=== PATIENT | male | born 1960 | race Caucasian/White ===

== ENCOUNTER 2019-07-12 08:58 | Emergency (ER) | payer OTHER, SELFPAY ==
--- NOTE | ~2019-07-12 | XR_ITS ---
EXAMINATION: XR ankle RT min 3V DATE: 07/12/2019 09:41 INDICATION: Right ankle injury and pain. TECHNIQUE: 4 views of right ankle were obtained. COMPARISON: None. FINDINGS: Bone alignment is normal. No fracture. There is an osteochondral lesion of lateral talar do me. There are marginal osteophytes at the ankle joint. There is a 7 mm loose body in the posterior an kle joint recess. There are enthesophytes at the posterior and plantar aspects of calcaneal tuberosit y. Ankle soft tissue swelling is noted. IMPRESSION: 1. Ankle joint osteoarthritis including an osteochondral lesion at lateral talar dome. 2. Ankle joint loose body. Reviewed, dictated and finalized at location A. ONAL CLIMATE CHANGE ANALYST IMPRESSION: 1. Ankle joint osteoarthritis including an osteochondral lesion at lateral marie r dome. 2. Ankle joint loose body.
[2019-07-12 09:16] VITALS: BP 164/96; PULSE 92; RESP 16; TEMP 37.2; O2SAT 98
--- NOTE | 2019-07-12 09:27 | ED.LOWEXIN ---
HPI - Extremity Injury (Lower) General Chief Complaint: Extremity Injury, Lower Stated Complaint: Right ankle pain/swollen Time Seen by Provider: 07/12/19 09:28 Source: patient Mode of arrival: ambulatory Limitations: no limitations History of Present Illness HPI Narrative: Michael Wynn is a 58-year-old male with a PMH of high blood pressure who comes to express care after rolling his right ankle last night on grandchild's toy. Lateral ankle is swollen and difficult to walk on it without pain Related Data Home Medications Medication Instructions Recorded Confirmed lisinopril 30 mg PO DAILY 07/12/19 07/12/19 Allergies Allergy/AdvReac Type Severity Reaction Status Date / Time No Known Allergies Allergy Unverified 11/23/11 11:12 Review of Systems Review of Systems: Narrative: CONSTITUTIONAL: Denies fever, chills, sweats. EYES: Denies visual changes, redness, discharge. ENT: Denies rhinorrhea, congestion, sore throat, otalgia. CARDIOVASCULAR: Denies chest pain, palpitations, edema. RESPIRATORY: Denies dyspnea, wheezing, cough GASTROINTESTINAL: Denies abdominal pain, nausea, vomiting, diarrhea. GENITOURINARY: Denies dysuria, hematuria, abnormal discharge SKIN: Denies rash or itching. NEUROLOGIC: Denies numbness, or focal weakness. PSYCHIATRIC: Denies anxiety or depression. Right ankle pain and swelling PMFSH Family History Family History Other Cerebrovascular accident Family history of malignant neoplasm Social History Social History (Updated 07/12/19 @ 09:37 by Kala Chen CNP) Smoking status: Current every day smoker Alcohol intake: current Alcohol use details: When asked, states he drinks more than socially Comments At time of signature, I agree with nursing past medical, surgical, social and family history. There is no relevant family history pertinent to the presenting complaint. Exam Narrative: Exam Narrative: GENERAL: This is a well-nourished, well-developed patient, in no apparent distress. HEAD: normocephalic, atraumatic. EYES:Sclera clear/white. Vision is grossly intact. EARS: External ears normal, . Hearing grossly intact. NOSE: External nose normal with no obvious nasal discharge, nares without redness, no rhinorrhea. THROAT: Mucous membranes moist, NECK: Neck supple, non-tender without lymphadenopathy, masses or thyromegaly. CARDIOVASCULAR: Regular rate and rhythm without murmurs, gallops, or rubs. RESPIRATORY: Clear to auscultation. Breath sounds equal bilaterally. No wheezes, rales, or rhonchi. GASTROINTESTINAL: Abdomen soft, SKIN: warm, intact with no suspicious lesions or rash, good texture and turgor. NEURO: awake, alert, and oriented to person, place and time. There were no obvious focal neurologic abnormalities. Steady gait EXTREMITIES: Reduced range of motion in right ankle. edema. No calf tenderness. 2+ pedal pulse in right foot, wiggle toes BACK: Nontender without deformity or crepitance. Course Course Emergency Course: X-ray right ankle X-ray shows osteoarthritis, loose body in ankle joint, no acute fracture Placed in Robel wrap-referred to [place] pharmacy for boot to assist walking Vital Signs Vital signs: Vital Signs Temperature 99.0 F 07/12/19 09:16 Pulse Rate 92 07/12/19 09:16 Respiratory Rate 16 07/12/19 09:16 Blood Pressure 164/96 H 07/12/19 09:16 Pulse Oximetry 98 07/12/19 09:16 Temperature 99.0 F 07/12/19 09:16 Pulse Rate 92 07/12/19 09:16 Respiratory Rate 16 07/12/19 09:16 Blood Pressure 164/96 H 07/12/19 09:16 Pulse Oximetry 98 07/12/19 09:16 MDM - Extremity Injury (Lower) Differential Diagnosis Differential diagnosis: Likely ankle sprain and strain, fracture of toe and ankle fracture Discharge Plan Discharge Clinical Impression: Ankle sprain and strain Patient Disposition: Home, Self-Care Condition: Stable Instructions: Ankle Spr
== END 2019-07-12 10:19 | disposition home or self-care (01) ==
PROVIDERS: Emergency Provider Nurse Practitioner; PCP Emergency Medicine
DX: S93.401A Sprain of unspecified ligament of right ankle, initial encounter (principal); S96.911A Strain of unspecified muscle and tendon at ankle and foot level, right foot, initial encounter; X50.9XXA Other and unspecified overexertion or strenuous movements or postures, initial encounter; F17.200 Nicotine dependence, unspecified, uncomplicated; I10 Essential (primary) hypertension
CPT/HCPCS: 73610; 99213; G0463

== ENCOUNTER 2024-08-02 00:36 | Day surgery (SDC) | payer BC, SELFPAY ==
[2024-06-11 13:28] VITALS: BMI 35.9
--- NOTE | 2024-07-23 13:52 | PC.NURSE ---
Patient denies any changes to health history, medications or insurance. Updated to date and time and prep instructions reviewed.
--- OUTSIDE RECORDS SUMMARY | 2024-08-02 00:38 | XMS_ITS | Referral Summary ---
Author Organization [facility] [address] [facility] Address [address] [place] [address] Care Team Providers Care Elementary Classroom Teacher Name Role Phone Bart Leon MD Primary Care Provider [phone] Allergies No known active allergies Medications sildenafiL (VIAGRA) 25 mg tablet Take 1 tablet (25 mg total) by mouth daily as needed Active omega 1-zox-olh-fish oil 300-1,000 mg capsule 1 capsule Active lisinopriL (PRINIVIL,ZESTRIL) 40 mg tablet TAKE 1 TABLET(40 MG) BY MOUTH DAILY 30 tablet 5 4 Active amLODIPine (NORVASC) 5 mg tabletIndications:E ssential hypertension TAKE 1 TABLET(5 MG) BY MOUTH DAILY FOR BLOOD PRESSURE 90 tablet 1 5 Active rosuvastatin (CRESTOR) 10 mg tabletIndications:M ixed hyperlipidemia TAKE 1 TABLET(10 MG) BY MOUTH DAILY 90 tablet 1 5 Active Active Problems Problem Noted Date Diagnosed Date Severe obesity 03/14/2024 Elevated PSA 07/01/2020 Assessment & Plan (07/01/2020 5:24 PM HAND SEWER SHOES): He has to return call to urology. We reviewed recent labs. He will let us know if struggling to achieve contact with urology Leukocytosis 07/01/2020 Assessment & Plan (07/01/2020 5:23 PM HAND SEWER SHOES): We reviewed recent labs. He has repeat cbc pending. We also discussed potential etiologies of this including elevated psa and positive cologuard. He was strongly advised to keep appts with urology and gastroenterology. Hyperlipidemia 07/01/2020 Assessment & Plan (07/01/2020 5:22 PM HAND SEWER SHOES): rf meds prn Encouraged heart healthy diet Positive colorectal cancer screening using Colog uard test 07/01/2020 Assessment & Plan (07/01/2020 5:24 PM HAND SEWER SHOES): We reviewed recent results. He was advised to contact gi - will give phone number as he thinks he missed call. He will let us know if struggling to make contact with them. Cigarette smoker 06/02/2020 Assessment & Plan (07/01/2020 5:23 PM HAND SEWER SHOES): He was advised smoking cessation, declines smoking cessation aid. Assessment & Plan (06/02/2020 5:45 PM HAND SEWER SHOES): Advised smoking cessation He declines low dose ct chest at this time Will start on wellbutrin to aid in attempt to quit. Advised not stopping abruptly. Advised monitoring for depression or worsening of moods and to report to office if experiencing. Obesity (BMI 30-39.9) 06/02/2020 Assessment & Plan (07/01/2020 3:28 PM HAND SEWER SHOES): Obesity is unchanged. Discussed the patient's BMI. The BMI is above average. BMI management plan is completed. BMI Follow-up includes: nutrition counseling, exercise counseling and education provided. Assessment & Plan (06/02/2020 4:28 PM HAND SEWER SHOES): Obesity is unchanged. Discussed the patient's BMI. The BMI is above average. BMI management plan is completed. BMI Follow-up includes: nutrition counseling, exercise counseling and education provided.Obesity is unchanged. Discussed the patient's BMI. Essential hypertension 06/02/2020 Assessment & Plan (07/01/2020 5:22 PM HAND SEWER SHOES): rf meds prn Assessment & Plan (06/02/2020 5:44 PM HAND SEWER SHOES): Restart lisinopril Goal bp 120/80 rf meds as needed Chronic gout without tophus 06/02/2020 Lipoma of torso 06/02/2020 Assessment & Plan (06/02/2020 5:44 PM HAND SEWER SHOES): Retrieve records from surgeon and previous pcp. Advised surgical excision as with growth the surgery becomes more complicated and potential for post-op complications increases. He declines referral at this time. Resolved Problems Problem Noted Date Diagnosed Date Resolved Date Encounter to establish care 06/02/2020 03/14/2024 Assessment & Plan (06/02/2020 5:43 PM HAND SEWER SHOES): Fasting labs entered, will notify patient of results as available Retrieve records from previous pcp Colon cancer screening 06/02/202003/14 Assessment & Plan (06/02/2020 5:45 PM HAND SEWER SHOES): Will order cologuard. He refuses cscope at this time. Annual physical exam 06/02/2020 024 Assessment & Plan (06/02/2020 5:44 PM HAND SEWER SHOES): Fasting labs entered, will notify patient of results as available Immunizations Immunization Administration Dates Next Due Influenza, Unspecified 06/02/2023(Deferr ed: Patient Refused),02/25/2021(Deferred: Patient Refused),02/07/2020(Deferred: Patient Refused) Social History Tobacco Use Types Packs/Day Years Used Date Smoking Tobacco: Every Day Cigarettes 0.4 20 Started: 2001; Last attempted to quit: 2021 Smokeless Tobacco: Never Tobacco Cessation:Ready to Q uit: Not Asked Alcohol Use Standard Drinks/Week Comments Not Currently 0 (1 standard drink = 0.6 oz pur e alcohol) AUDIT-C Answer Date Recorded Q1: How often do you have a drink containing alcohol? 4 or more times a week 06/03/2023 Q2: How many drinks containi ng alcohol do you have on a typical day when you are drinking? 1 or 2 Q3: How often do you have si x or more drinks on one occasion? Less than monthly 06/03/2023 PHQ-2 Answer Date Recorded PHQ-2 Total Score (If total score is 3 or more points, staff should administer the PHQ-9) 0 03/14/2024 Sex and Gender Information Value Date Recorded Sex Assigned at Not on file Legal Sex Male 1:58 AM HAND SEWER SHOES Gender Identity Not on file Sexual Orientation Not on file Last Filed Vital Signs Vital Sign Reading Time Taken Comments Blood Pressure 190/100 03/14/2024 1:44 PM HAND SEWER SHOES Pulse 99 03/14/2024 1:44 PM HAND SEWER SHOES Temperature 36.2 C (97.1 F) 03/14/2024 1:44 PM HAND SEWER SHOES Respiratory Rate 18 03/14/2024 1:44 PM HAND SEWER SHOES Oxygen Saturation 99% 03/14/2024 1:44 PM HAND SEWER SHOES Inhaled Oxygen Concentration - - Weight 113.2 kg (249 lb 8 oz) 03/14/2024 1:44 PM HAND SEWER SHOES Height 177.8 cm (5' 10 ) 03/14/2024 1:44 PM HAND SEWER SHOES Body Mass Index 35.8 03/14/2024 1:44 PM HAND SEWER SHOES Plan of Treatment Not on file Procedures Procedure Name Priority Date/Time Associated Diagnosis Comments PSA SCREEN Routine 03/20/2024 10:08 AM HAND SEWER SHOES Elevated PSA from Last 3 Months or Most Recently Relevant to Health Maintenance Results * (ABNORMAL) PSA screen (03/20/2024 10:08 AM HAND SEWER SHOES) PSA 6.22(H) < OR = 4.00 ng/mL [facility] Comment: The total PSA value from this assay system is standardized against the WHO standard. The test result will be approximately 20% lower when compared to the equimolar-standardized total PSA (Jace Walton). Comparison of serial PSA results should be interpreted with this fact in mind. This test was performed using the Siemens chemiluminescent method. Values obtained from different assay methods cannot be used interchangeably. PSA levels, regardless of value, should not be interpreted as absolute evidence of the presence or absence of disease. Blood 03/20/2024 10:0 8 AM HAND SEWER SHOES 03/20/2024 10:09 AM HAND SEWER SHOES Narrative [facility] - 03/21/2024 2:58 PM HAND SEWER SHOES FASTING:YES FASTING: YES Anita Wallace LAB BLOOD ORDERABLES Fin al Result [facility] [id number] [place] [id number] from Last 3 Months or Most Recently Relevant to Health Maintenance Insurance [facility] Care Teams Elementary Classroom Teacher Relationship Specialty Start Date End Date Bart Leon MD PCP - General Family Medicine 01/28/22
--- OUTSIDE RECORDS SUMMARY | 2024-08-02 00:38 | XMS_ITS | Clinical Summary ---
Author Organization [facility] [address] [facility] Address [address] [place] [address] Care Team Providers Care Torch Solderer Name Role Phone Bart Leon MD Primary Care Provider [phone] Allergies No known active allergies Medications sildenafiL (VIAGRA) 25 mg tablet Take 1 tablet (25 mg total) by mouth daily as needed Active omega 5-zdv-jzl-fish oil 300-1,000 mg capsule 1 capsule Active [...] 07/01/2020 Assessment & Plan (07/01/2020 5:24 PM PHARMACY RETAIL SUPPORT SPECIALIST): He has to return call to urology. We reviewed recent labs. He will let us know if struggling to achieve contact with urology Leukocytosis 07/01/2020 Assessment & Plan (07/01/2020 5:23 PM PHARMACY RETAIL SUPPORT SPECIALIST): We reviewed recent labs. He has repeat cbc pending. We also discussed potential etiologies of this including elevated psa and positive cologuard. He was strongly advised to keep appts with urology and gastroenterology. Hyperlipidemia 07/01/2020 Assessment & Plan (07/01/2020 5:22 PM PHARMACY RETAIL SUPPORT SPECIALIST): rf meds prn Encouraged heart healthy diet Positive colorectal cancer screening using Colog uard test 07/01/2020 Assessment & Plan (07/01/2020 5:24 PM PHARMACY RETAIL SUPPORT SPECIALIST): We reviewed recent results. He was advised to contact gi - will give phone number as he thinks he missed call. He will let us know if struggling to make contact with them. Cigarette smoker 06/02/2020 Assessment & Plan (07/01/2020 5:23 PM PHARMACY RETAIL SUPPORT SPECIALIST): He was advised smoking cessation, declines smoking cessation aid. Assessment & Plan (06/02/2020 5:45 PM PHARMACY RETAIL SUPPORT SPECIALIST): Advised smoking cessation He declines low dose ct chest at this time Will start on wellbutrin to aid in attempt to quit. Advised not stopping abruptly. Advised monitoring for depression or worsening of moods and to report to office if experiencing. Obesity (BMI 30-39.9) 06/02/2020 Assessment & Plan (07/01/2020 3:28 PM PHARMACY RETAIL SUPPORT SPECIALIST): Obesity is unchanged. Discussed the patient's BMI. The BMI is above average. BMI management plan is completed. BMI Follow-up includes: nutrition counseling, exercise counseling and education provided. Assessment & Plan (06/02/2020 4:28 PM PHARMACY RETAIL SUPPORT SPECIALIST): Obesity is unchanged. Discussed the patient's BMI. The BMI is above average. BMI management plan is completed. BMI Follow-up includes: nutrition counseling, exercise counseling and education provided.Obesity is unchanged. Discussed the patient's BMI. Essential hypertension 06/02/2020 Assessment & Plan (07/01/2020 5:22 PM PHARMACY RETAIL SUPPORT SPECIALIST): rf meds prn Assessment & Plan (06/02/2020 5:44 PM PHARMACY RETAIL SUPPORT SPECIALIST): Restart lisinopril Goal bp 120/80 rf meds as needed Chronic gout without tophus 06/02/2020 Lipoma of torso 06/02/2020 Assessment & Plan (06/02/2020 5:44 PM PHARMACY RETAIL SUPPORT SPECIALIST): Retrieve records from surgeon and previous pcp. Advised surgical excision as with growth the surgery becomes more complicated and potential for post-op complications increases. He declines referral at this time. Resolved Problems Problem Noted Date Diagnosed Date Resolved Date Encounter to establish care 06/02/2020 03/14/2024 Assessment & Plan (06/02/2020 5:43 PM PHARMACY RETAIL SUPPORT SPECIALIST): Fasting labs entered, will notify patient of results as available Retrieve records from previous pcp Colon cancer screening 06/02/202003/14 Assessment & Plan (06/02/2020 5:45 PM PHARMACY RETAIL SUPPORT SPECIALIST): Will order cologuard. He refuses cscope at this time. Annual physical exam 06/02/2020 024 Assessment & Plan (06/02/2020 5:44 PM PHARMACY RETAIL SUPPORT SPECIALIST): Fasting labs entered, will notify patient of results as available Immunizations Immunization Administration Dates Next Due Influenza, Unspecified 06/02/2023(Deferr ed: Patient Refused),02/25/2021(Deferred: Patient Refused),02/07/2020(Deferred: Patient Refused) Medical History Medical History Date Comments Hypertension Family History Medical History Relation Name Comments Cancer Father Stroke Mother Relation Name Status Comments Father Mother Social History Tobacco Use Types Packs/Day Years [...] on file Legal Sex Male 1:58 AM PHARMACY RETAIL SUPPORT SPECIALIST Gender Identity Not on file Sexual Orientation Not on file Obstetrics History Last Filed Vital Signs Vital Sign Reading Time Taken Comments Blood Pressure 190/100 03/14/2024 1:44 PM PHARMACY RETAIL SUPPORT SPECIALIST Pulse 99 03/14/2024 1:44 PM PHARMACY RETAIL SUPPORT SPECIALIST Temperature 36.2 C (97.1 F) 03/14/2024 1:44 PM PHARMACY RETAIL SUPPORT SPECIALIST Respiratory Rate 18 03/14/2024 1:44 PM PHARMACY RETAIL SUPPORT SPECIALIST Oxygen Saturation 99% 03/14/2024 1:44 PM PHARMACY RETAIL SUPPORT SPECIALIST Inhaled Oxygen Concentration - - Weight 113.2 kg (249 lb 8 oz) 03/14/2024 1:44 PM PHARMACY RETAIL SUPPORT SPECIALIST Height 177.8 cm (5' 10 ) 03/14/2024 1:44 PM PHARMACY RETAIL SUPPORT SPECIALIST Body Mass Index 35.8 03/14/2024 1:44 PM PHARMACY RETAIL SUPPORT SPECIALIST Plan of Treatment Health Maintenance Due Date Last Done Comments Colon Cancer Screening-Colonoscopy 1961 Hepatitis C Screening 1960 DTaP/Tdap/Td Vaccine (1 - Tdap) 1972 Hepatitis B Screening 08/07/1979 Pneumococcal vaccine <65 (1 of 2 - PCV) 1980 Zoster Vaccine (1 of 2) 08/07/2011 Covid-19 Vaccine (3 - season) 2024 06/19/2021, 03/20/2021 Regular Well Visit/Exam 18-64 06/03/2024 06/03/2023 Influenza Vaccine (#1) 2024 Postp oned from 01/08/2024 (Patient declined, but will receive in the future) Depression Screening 03/14/2025 03/14/2024, 06/03/2023, 01/28/2022, Additional history exists Prostate Cancer Screening-PSA 03/20/2026 03/20/2024, 02/12/2022, 06/17/2020 Procedures Procedure Name Priority Date/Time Associated Diagnosis Comments PSA SCREEN Routine 03/20/2024 10:08 AM PHARMACY RETAIL SUPPORT SPECIALIST Elevated PSA from Last 3 Months or Most Recently Relevant to Health Maintenance Results * (ABNORMAL) PSA screen (03/20/2024 10:08 AM PHARMACY RETAIL SUPPORT SPECIALIST) PSA 6.22(H) < OR = 4.00 ng/mL [facility] Comment: The total PSA value from this assay system is standardized against the WHO standard. The test result will be approximately 20% lower when compared to the equimolar-standardized total PSA (Jace Bijan). Comparison of serial PSA results should be interpreted with this fact in mind. This test was performed using the Siemens chemiluminescent method. Values obtained from different assay methods cannot be used interchangeably. PSA levels, regardless of value, should not be interpreted as absolute evidence of the presence or absence of disease. Blood 03/20/2024 10:0 8 AM PHARMACY RETAIL SUPPORT SPECIALIST 03/20/2024 10:09 AM PHARMACY RETAIL SUPPORT SPECIALIST Narrative [facility] - 03/21/2024 2:58 PM PHARMACY RETAIL SUPPORT SPECIALIST FASTING:YES FASTING: YES us Anita Wallace LAB BLOOD ORDERABLES Fin al Result [facility] [id number] [place] [address] from Last 3 Months or Most Recently Relevant to Health Maintenance Insurance [employer] [facility] Care Teams Torch Solderer Relationship Specialty Start Date End Date Bart Leon MD PCP - General Family Medicine 01/28/22
[2024-08-02 09:18] VITALS: BP 144/94; PULSE 108; RESP 18; TEMP 35.8; O2SAT 100; BMI 33.8
[2024-08-02] MEDS: LACTATED RINGERS 1,000 ML 150 ML IV CONT (09:39)
--- NOTE | 2024-08-02 10:30 | P.PNAN_ITS ---
Anes - Initial Pre Proc Eval Procedure: Operation Date: 08/02/24 10:00 Proposed Procedures p Colonoscopy - Derek Gonzales MD Date/Time: 08/02/24 10:30 Surgeon: Derek Gonzales MD Pre Op Diagnosis: Other fecal abnormalities Patient Data Age: 63 Gender: M Height: 1.78 m Weight: 107.1 kg Last Vital Signs Temp 96.5 F L 08/02/24 09:18 Pulse 108 H 08/02/24 09:18 Resp 18 08/02/24 09:18 BP 144/94 H 08/02/24 09:18 Pulse Ox 100 08/02/24 09:18 O2 Del Method Room Air 08/02/24 09:18 Allergies Allergy/AdvReac Type Severity Reaction Status Date / Time No Known Allergies Allergy Verified 08/02/24 09:25 Home Medications ?Medication ?Instructions ?Recorded ?Confirmed ?Type lisinopril 30 mg tablet 30 mg PO DAILY 07/12/19 06/11/24 History allopurinol 300 mg tablet 300 mg PO DAILY PRN gout flare 06/11/24 08/02/24 History amlodipine 5 mg tablet 5 mg PO DAILY 06/11/24 08/02/24 History fish, borage, flaxseed oils-omega 1 cap PO BID 06/11/24 08/02/24 History 3,6,9 cb #1 400 mg-400 mg-400 mg cap (Sprague 3-6-9 Complex) lisinopril 40 mg tablet 40 mg PO DAILY 06/11/24 08/02/24 History mecobalamin (vitamin B12) 1 tablet PO DAILY 06/11/24 08/02/24 History rosuvastatin 10 mg tablet 10 mg PO DAILY 06/11/24 08/02/24 History Patient hx anesthesia problems: none Family hx anesthesia problems: none Results Review: All pre-operative results and documents have been reviewed as part of the pre- operative evaluation. [facility] Family History Family History Other Cerebrovascular accident Family history of malignant neoplasm Social History Social History (Updated 07/12/19 @ 09:37 by Kala Chen, WIRELESS TELEGRAPHER) Smoking packs per day: 1 Smoking cigarettes per day: 20.0 Smoking status: Current every day smoker Tobacco type: cigarettes Alcohol intake: current Drinks per week: 12 Alcohol use details: When asked, states he drinks more than socially Substance use: former Substance use type: marijuana Last use: 6 month Living arrangements: with family Spiritual care concerns: No Anes - Eval Final PreProcedure Day of Procedure 08/02/24 10:30 Patient weight: obese Heart: regular rate and rhythm Lungs: clear to auscultation Airway: Mallampati scale class II Neurological: alert and oriented Last oral intake: >/= 8 hours ASA classification: III Emergent: no Anesthetic plan: proceed Anesthesia type and monitoring: general GIVS and standard monitoring Results Review: All pre-operative results and documents have been reviewed as part of the pre- operative evaluation. Informed Consent: The patient's anesthetic plan and its attendant risks and benefits were discussed with the patient/family/POA. Questions were solicited and answers provided to the satisfaction of the patient/family/POA.
--- NOTE | 2024-08-02 11:17 | PM.IMHP ---
H&P: HPI History of Present Illness Date/Time: 08/02/24 11:17 Chief Complaint: Positive Cologuard test Narrative: the patient is referred for colonoscopy after finding a positive Cologuard test. He has never had a colonoscopy. There is no family history of colorectal cancer Review of Systems Review of Systems: All systems reviewed & are unremarkable except as noted in HPI and below PMFSH Family History Family History Other Cerebrovascular accident Family history of malignant neoplasm Social History Social History (Updated 07/12/19 @ 09:37 by Kala Chen, PODIATRIC MEDICINE DOCTOR) Smoking packs per day: 1 Smoking cigarettes per day: 20.0 Smoking status: Current every day smoker Tobacco type: cigarettes Alcohol intake: current Drinks per week: 12 Alcohol use details: When asked, states he drinks more than socially Substance use: former Substance use type: marijuana Last use: 6 month Living arrangements: with family Spiritual care concerns: No Meds Home Medications and Allergies Home Medications ?Medication ?Instructions ?Recorded ?Confirmed ?Type lisinopril 30 mg tablet 30 mg PO DAILY 07/12/19 06/11/24 History allopurinol 300 mg tablet 300 mg PO DAILY PRN gout flare 06/11/24 08/02/24 History amlodipine 5 mg tablet 5 mg PO DAILY 06/11/24 08/02/24 History fish, borage, flaxseed oils-omega 1 cap PO BID 06/11/24 08/02/24 History 3,6,9 cb #1 400 mg-400 mg-400 mg cap ([place] 3-6-9 Complex) lisinopril 40 mg tablet 40 mg PO DAILY 06/11/24 08/02/24 History mecobalamin (vitamin B12) 1 tablet PO DAILY 06/11/24 08/02/24 History rosuvastatin 10 mg tablet 10 mg PO DAILY 06/11/24 08/02/24 History Allergies Allergy/AdvReac Type Severity Reaction Status Date / Time No Known Allergies Allergy Verified 08/02/24 09:25 Vital Signs Vital Signs - 24 hr 08/02/24 09:18 Temperature 96.5 F L Pulse Rate 108 H Respiratory Rate 18 Blood Pressure 144/94 H Pulse Oximetry 100 Oxygen Delivery Room Air Exam Const: General: cooperative and healthy appearing Resp: Effort & Inspection: normal respiratory effort and able to speak in complete sentences Auscultation: clear to auscultation bilaterally Cardio: Rate: regular rate Rhythm: regular rhythm GI: Inspection: normal to inspection GI Palp: No No hepatosplenomegaly present Auscultation: normal bowel sounds Rectal Exam: deferred Skin: General skin exam: normal color Psych: Appearance: grossly normal Mental Status: mental status grossly normal Assessment and Plan Assessment and plan (1) Positive colorectal cancer screening using Cologuard test: Code(s): R19.5 - Other fecal abnormalities Status: Acute Assessment and Plan: The patient is deemed a good candidate for the procedure. Consent signed. Will proceed.
[2024-08-02] MEDS: SIMETHICONE ORAL SUSPENSION 20 MG/0.3 ML 30 ML BOTTLE 0.6 ML IRRIGATION (11:34)
[2024-08-02 12:36] VITALS: BP 102/71; PULSE 85; RESP 24; O2SAT 100
[2024-08-02 12:46] VITALS: BP 134/91; PULSE 82; RESP 19; O2SAT 99
[2024-08-02 12:56] VITALS: BP 128/83; PULSE 80; RESP 22; O2SAT 99
== END 2024-08-02 13:10 | disposition home or self-care (01) ==
PROVIDERS: PCP Family Medicine; Visit Provider Internal Medicine Gastroenterology
PROC: 0DJD8ZZ Inspection of Lower Intestinal Tract, Via Natural or Artificial Opening Endoscopic (ICD-10-PCS; CPT 45378; principal; 2024-08-02 10:00)
DX: D12.5 Benign neoplasm of sigmoid colon (principal); D12.3 Benign neoplasm of transverse colon; D12.2 Benign neoplasm of ascending colon; K57.30 Diverticulosis of large intestine without perforation or abscess without bleeding; F17.210 Nicotine dependence, cigarettes, uncomplicated; F12.90 Cannabis use, unspecified, uncomplicated; E66.9 Obesity, unspecified; Z68.33 Body mass index [BMI] 33.0-33.9, adult; Z80.1 Family history of malignant neoplasm of trachea, bronchus and lung; Z82.49 Family history of ischemic heart disease and other diseases of the circulatory system
CPT/HCPCS: 45390; 88305; J2003; J2704; J7120